=== PATIENT | female | born 1985 | race Caucasian/White ===

== ENCOUNTER 2017-05-24 20:42 | Emergency (ER) | payer OTHER ==
[~2017-05-24] VITALS: Ht 165.1 cm; Wt 65.8 kg
[~2017-05-24 20:42] MED LIST: ALBU90I INH; ALBU90OI; ALBU90OI INH; ALBU90OI6 INH; AMOCLA500 PO; AMOCLA875 PO; AMOX500 PO; ANTOXYBENA OT; AZIT250 PO; BENZ100A PO; BETA.05TC TP; CEPH500 PO; CODACE30 PO; CODGUAEL PO; CYCL10 PO; DIPH50 PO; DOXY100 PO; FLUC200 PO; GUAI600ER PO; HYDACE25S PR; HYDACE5 PO; HYDCOR2.5B TOP; IBUP600 PO; IBUP800 PO; KETO120T TP; LORA.5 PO; METPRE4DP PO; MUPI2TC TOP; Mucinex600 MG PO; NAPR375 PO; NEOCOLOTSU OT; NEOPOLHCSU OT; NEOPOLHYDS OT; ONDA4 PO; OXYACE5T PO; PERM5TC TOP; PREN-16 PO; Prednisone20 MG PO; RANI150 PO; RXCYCL10 PO; RXHYDACE PO; RXNEOPOLHC AD; RXTRAM50 PO; SULTRIDS PO; TRAM50 PO; TRIA80TC TOP; Tylenol325 MG PO; VARE1 PO
== END 2017-05-25 21:24 | disposition home or self-care (01) ==
LOC: ER 20:42
DX: R55 Syncope and collapse (principal); S01.111A Laceration without foreign body of right eyelid and periocular area, initial encounter; J45.909 Unspecified asthma, uncomplicated; F17.200 Nicotine dependence, unspecified, uncomplicated; Z88.8 Allergy status to other drugs, medicaments and biological substances; Z88.2 Allergy status to sulfonamides; Z91.018 Allergy to other foods; W22.8XXA Striking against or struck by other objects, initial encounter
CPT/HCPCS: 99283

== ENCOUNTER 2019-11-10 09:35 | Emergency (ER) | payer OTHER ==
[~2019-11-10] VITALS: Ht 165.1 cm; Wt 63.5 kg
[2019-11-10] MEDS ORDERED: ONDA4 MM (10:47)
== END 2019-11-10 10:56 | disposition home or self-care (01) ==
LOC: ER 09:35
DX: R55 Syncope and collapse (principal); R11.0 Nausea; Z91.018 Allergy to other foods; Z88.2 Allergy status to sulfonamides; Z88.8 Allergy status to other drugs, medicaments and biological substances; F17.210 Nicotine dependence, cigarettes, uncomplicated
CPT/HCPCS: 93005; 93010; 99284-25

== ENCOUNTER 2020-06-20 15:27 | Emergency (ER) | payer OTHER ==
[~2020-06-20] VITALS: Ht 165.1 cm; Wt 72.6 kg
[~2020-06-20 15:27] MED LIST changes: +ONDA4 MM
== END 2020-06-20 17:06 | disposition left against medical advice (07) ==
LOC: ER 15:27
DX: R22.0 Localized swelling, mass and lump, head (principal); Z53.21 Procedure and treatment not carried out due to patient leaving prior to being seen by health care provider
CPT/HCPCS: 70450; 72125; 99283-25

== ENCOUNTER 2023-05-01 22:17 | Emergency (ER) | payer SELFPAY ==
[~2023-05-01] VITALS: Ht 175.3 cm; Wt 79.4 kg
[2023-05-01 22:35] VITALS: BP 127/79
== END 2023-05-01 23:52 | disposition left against medical advice (07) ==
LOC: ER 22:17
DX: S01.91XA Laceration without foreign body of unspecified part of head, initial encounter (principal); X58.XXXA Exposure to other specified factors, initial encounter; Z53.21 Procedure and treatment not carried out due to patient leaving prior to being seen by health care provider
CPT/HCPCS: 70450; 99284-25

== ENCOUNTER 2023-10-29 21:14 | Emergency (ER) | payer OTHER ==
[~2023-10-29] VITALS: Ht 165.1 cm; Wt 77.1 kg
[2023-10-29 21:37] VITALS: BP 154/94
== END 2023-10-29 21:53 | disposition home or self-care (01) ==
LOC: ER 21:14
DX: Z02.89 Encounter for other administrative examinations (principal); T19.2XXA Foreign body in vulva and vagina, initial encounter; F11.20 Opioid dependence, uncomplicated; F17.210 Nicotine dependence, cigarettes, uncomplicated; W44.8XXA Other foreign body entering into or through a natural orifice, initial encounter; Z88.2 Allergy status to sulfonamides; Z88.8 Allergy status to other drugs, medicaments and biological substances; Z91.018 Allergy to other foods; Z88.6 Allergy status to analgesic agent
CPT/HCPCS: 99282

== ENCOUNTER 2024-12-12 11:44 | Emergency (ER) | payer OTHER ==
[~2024-12-12] VITALS: Ht 167.6 cm; Wt 81.7 kg
[2024-12-12] MEDS ORDERED: Naloxone HCl 1MG / ML 2ML SYR IV ONE (11:50)
[2024-12-12 12:05] VITALS: BP 134/99
[2024-12-12 12:25] LABS: Calcium, Ionized (POC) 1.12 mmol/L (1.10-1.46); Chloride (POC) 105 mmol/L (98-108); Creatinine (POC) 0.9 mg/dL (0.6-1.0); Glucose (ISTAT POC) 106 mg/dL (70-99); Hematocrit (POC) 38.0 % (36.0-46.0); Hemoglobin (POC) 12.9 g/dL (12.0-16.0); Potassium (POC) 4.0 mmol/L (3.5-5.5); Sodium (POC) 138 mmol/L (135-148); Total CO2 (POC) 25 mmol/L (21-32)
== END 2024-12-12 13:47 | disposition home or self-care (01) ==
LOC: ER 11:44
PROVIDERS: Emergency Medicine
DX: O20.0 Threatened abortion (principal); J45.909 Unspecified asthma, uncomplicated; F17.210 Nicotine dependence, cigarettes, uncomplicated; Z88.2 Allergy status to sulfonamides; Z88.6 Allergy status to analgesic agent; Z88.1 Allergy status to other antibiotic agents; Z91.018 Allergy to other foods
CPT/HCPCS: 80047; 85014; 93005; 93010; 96374; 99284-25; J2310